=== PATIENT | female | born 1980 | race Caucasian/White ===

== ENCOUNTER 2022-03-04 19:41 | Emergency (ER) | payer SELFPAY ==
[2022-03-04 19:49] VITALS: RESP 20; TEMP 98.2; BMI 30.9
[2022-03-04] MEDS ORDERED: FAMOTIDINE 20 MG/50 ML IVPB 20 MG/50 ML MG IVPB ONE (20:13)
[2022-03-04] MEDS ORDERED: SODIUM CHLORIDE 0.9% 500 ML INFUS.BAG IV ONE (20:13)
[2022-03-04] MEDS ORDERED: ONDANSETRON 4 MG/2 ML VIAL IVPUSH ONE (20:13)
[2022-03-04] MEDS ORDERED: ONDANSETRON 4 MG/2 ML VIAL ONE (20:20)
[2022-03-04] MEDS ORDERED: FAMOTIDINE 10 MG/ML VIAL IVPB ONE (20:20)
[2022-03-04 20:31] LABS: BASO % 0.9 % (0-2.0); EOS % 1.9 % (0-4.5); HEMATOCRIT 47.5 % (32.4-45.2); LYMPH % 18.3 % (8-40); MCH 31.3 pg (25.7-33.7); MCHC 33.6 g/dl (32.0-36.0); MEAN CELL VOLUME 93.1 fl (80-96); MEAN PLT VOLUME 9.1 fl (7.5-11.1); MONO % 8.8 % (3.8-10.2); NEUT % 70.1 % (42.8-82.8); PLATELET COUNT 246 10^3/uL (134-434)
[2022-03-04 20:44] LABS: ALBUMIN 3.5 g/dl (3.4-5.0); BLOOD UREA NITROGEN 10.2 mg/dL (7-18); CALCIUM 9.1 mg/dL (8.5-10.1)
[2022-03-04 20:47] LABS: CREATININE 0.9 mg/dL (0.55-1.3)
[2022-03-04 20:49] LABS: BILIRUBIN,TOTAL 0.9 mg/dL (0.2-1); TOT PROT 6.8 g/dl (6.4-8.2)
[2022-03-04 23:07] VITALS: BP 127/80; PULSE 85
== END 2022-03-04 23:07 | disposition home or self-care (01) ==
LOC: JER 19:41
PROC: 3E033GC Introduction of Other Therapeutic Substance into Peripheral Vein, Percutaneous Approach (ICD-10-PCS; principal; 2022-03-04)
PROC: 3E033GC Introduction of Other Therapeutic Substance into Peripheral Vein, Percutaneous Approach (ICD-10-PCS; 2022-03-04)
DX: R11.2 Nausea with vomiting, unspecified (principal); R19.7 Diarrhea, unspecified
CPT/HCPCS: 0241U-QW; 36415; 71046-TC-FY; 80053; 83690; 84703; 85025; 99284-25

== ENCOUNTER 2023-03-22 20:11 | Inpatient (IN) | payer OTHER ==
[2023-03-22] MEDS ORDERED: ACETAMINOPHEN 325 MG TABLET (FP) PO ONE (20:29)
[2023-03-22] MEDS ORDERED: IBUPROFEN 600 MG TABLET (FP) PO ONE ×2 (20:29→20:37)
[2023-03-22] MEDS ORDERED: ACETAMINOPHEN 500 MG TABLET (FP) ONE (20:37)
[2023-03-22 21:03] LABS: EPI CELLS 23 /uL (0-25.1); HYALINE CASTS 4 /uL (0-3.1); URINE APPEARANCE CLOUDY; URINE BACTERIA 3368 /uL (0-1359); URINE BILIRUBIN NEGATIVE (NEGATIVE); URINE COLOR YELLOW; URINE GLUCOSE (UA) NEGATIVE (NEGATIVE); URINE KETONE TRACE (NEGATIVE); URINE LEUK ESTERASE 2+ (NEGATIVE); URINE NITRITE NEGATIVE (NEGATIVE); URINE PROTEIN TRACE (NEGATIVE); URINE RBC 25 /uL (0-23.9); URINE WBC 454 /uL (0-25.8)
[2023-03-22] MEDS ORDERED: ALBUTEROL SO4 2.5/IPRATROPIUM 0.5 INH SOL 3 ML VIAL.NEB. NEB ONE (21:23)
[2023-03-22] MEDS: ALBUTEROL SO4 2.5/IPRATROPIUM 0.5 INH SOL 3 ML VIAL.NEB. NEB SCH (21:26)
[2023-03-22] MEDS ORDERED: SODIUM CHLORIDE 0.9% 500 ML INFUS.BAG IV ONE (21:55)
[2023-03-22] MEDS ORDERED: CEFTRIAXONE 1,000 MG in DEXTROSE 5%-WATER - 50 ML IVPB ONE (22:02)
[2023-03-22] MEDS ORDERED: CEFTRIAXONE 1 GM/50 ML BAG ONE (22:10)
[2023-03-22 22:25] LABS: BASO % 0.5 % (0-2.0); EOS % 0.2 % (0-4.5); HEMATOCRIT 44.5 % (32.4-45.2); MCH 31.3 pg (25.7-33.7); MCHC 33.8 g/dl (32.0-36.0); MEAN CELL VOLUME 92.6 fl (80-96); MEAN PLT VOLUME 8.6 fl (7.5-11.1); MONO % 7.9 % (3.8-10.2); NEUT % 82.4 % (42.8-82.8); PLATELET COUNT 170 10^3/uL (134-434); RBC 4.81 M/mm3 (3.60-5.2); RDW 13.6 % (11.6-15.6); WHITE BLOOD COUNT 15.9 K/mm3 (4.0-10.0)
[2023-03-22 22:51] LABS: POTASSIUM 3.6 mmol/L (3.5-5.1)
[2023-03-22 22:54] LABS: CALCIUM 8.4 mg/dL (8.5-10.1)
[2023-03-22 22:55] LABS: ALBUMIN 3.7 g/dl (3.4-5.0)
[2023-03-22 22:58] LABS: CREATININE 0.7 mg/dL (0.55-1.3)
[2023-03-22 23:00] LABS: BILIRUBIN,TOTAL 0.6 mg/dL (0.2-1)
[2023-03-23] MEDS ORDERED: ALBUTEROL SO4 2.5/IPRATROPIUM 0.5 INH SOL 3 ML VIAL.NEB. NEB PRN (04:16)
[2023-03-23 05:07] VITALS: RESP 20; BMI 36.3
[2023-03-23 08:55] LABS: METHADONE, UR NEGATIVE (NEGATIVE); OPIATES, URI NEGATIVE (NEGATIVE); URINE BARBITURATES NEGATIVE (NEGATIVE); URINE BENZODIAZEPINES NEGATIVE (NEGATIVE)
[2023-03-23 08:56] LABS: URINE AMPHETAMINES NEGATIVE (NEGATIVE)
[2023-03-23 09:02] LABS: COCAINE, UR POSITIVE (NEGATIVE); PHENCYCLIDINE,URINE POSITIVE (NEGATIVE)
[2023-03-23] MEDS ORDERED: CEFTRIAXONE 1 GM in DEXTROSE 5%-WATER - 50 ML IVPB SCH (10:00)
[2023-03-23] MEDS: ENOXAPARIN NA (PORCINE) 40 MG/0.4 ML DISP.SYRIN SQ SCH (10:08)
[2023-03-23 10:16] LABS: BASO % 0.3 % (0-2.0); EOS % 0.2 % (0-4.5); HEMATOCRIT 41.2 % (32.4-45.2); LYMPH % 4.3 % (8-40); MCH 31.5 pg (25.7-33.7); MCHC 33.9 g/dl (32.0-36.0); MEAN CELL VOLUME 92.8 fl (80-96); MEAN PLT VOLUME 8.7 fl (7.5-11.1); MONO % 5.8 % (3.8-10.2); NEUT % 89.4 % (42.8-82.8); PLATELET COUNT 151 10^3/uL (134-434); RBC 4.44 M/mm3 (3.60-5.2); RDW 13.6 % (11.6-15.6); WHITE BLOOD COUNT 11.9 K/mm3 (4.0-10.0)
[2023-03-23] MEDS: BUDESONIDE/FORMETEROL FUMARATE 160/4.5 mcg INHALER IH SCH (10:24)
[2023-03-23 10:32] LABS: POTASSIUM 3.9 mmol/L (3.5-5.1)
[2023-03-23 10:34] LABS: CALCIUM 8.2 mg/dL (8.5-10.1); MAGNESIUM 1.8 mg/dL (1.8-2.4)
[2023-03-23 10:35] LABS: BLOOD UREA NITROGEN 12.1 mg/dL (7-18)
[2023-03-23 10:37] LABS: ALBUMIN 3.2 g/dl (3.4-5.0)
[2023-03-23 10:38] LABS: CREATININE 0.8 mg/dL (0.55-1.3); PHOSPHOROUS 1.6 mg/dL (2.5-4.9)
[2023-03-23 10:39] LABS: BILIRUBIN,TOTAL 0.4 mg/dL (0.2-1); TOT PROT 6.1 g/dl (6.4-8.2)
[2023-03-23] MEDS: ACETAMINOPHEN 325 MG TABLET (FP) PO PRN (13:42)
[2023-03-23] MEDS ORDERED: NAPH,MB-DB/K PH,MBDB POWDER PACKET PO ONE (14:30)
[2023-03-24] MEDS: ACETAMINOPHEN 325 MG TABLET (FP) PO PRN ×2 (05:25→11:51)
[2023-03-24] MEDS: BUDESONIDE/FORMETEROL FUMARATE 160/4.5 mcg INHALER IH SCH ×2 (05:33→11:24)
[2023-03-24] MEDS ORDERED: PIPERACILLIN/TAZOB 3.375 GM 3.375 GM in DEXTROSE 5%-WATER - 50 ML IVPB SCH ×2 (10:00→18:00)
[2023-03-24] MEDS: ENOXAPARIN NA (PORCINE) 40 MG/0.4 ML DISP.SYRIN SQ SCH (10:07)
[2023-03-24 11:02] LABS: BASO % 0.5 % (0-2.0); HEMATOCRIT 42.3 % (32.4-45.2); HEMOGLOBIN 14.1 GM/dL (10.7-15.3); LYMPH % 13.8 % (8-40); MCH 31.2 pg (25.7-33.7); MCHC 33.2 g/dl (32.0-36.0); MEAN CELL VOLUME 93.9 fl (80-96); MEAN PLT VOLUME 9.4 fl (7.5-11.1); MONO % 10.8 % (3.8-10.2); NEUT % 73.9 % (42.8-82.8); PLATELET COUNT 153 10^3/uL (134-434); RBC 4.51 M/mm3 (3.60-5.2); RDW 13.5 % (11.6-15.6); WHITE BLOOD COUNT 7.8 K/mm3 (4.0-10.0)
[2023-03-24 11:11] LABS: POTASSIUM 3.7 mmol/L (3.5-5.1)
[2023-03-24 11:19] LABS: CALCIUM 8.3 mg/dL (8.5-10.1)
[2023-03-24 11:20] LABS: BLOOD UREA NITROGEN 8.7 mg/dL (7-18); MAGNESIUM 2.2 mg/dL (1.8-2.4)
[2023-03-24 11:22] LABS: CREATININE 0.6 mg/dL (0.55-1.3); PHOSPHOROUS 1.9 mg/dL (2.5-4.9)
[2023-03-24 11:24] LABS: BILIRUBIN,TOTAL 0.5 mg/dL (0.2-1); TOT PROT 6.3 g/dl (6.4-8.2)
[2023-03-24 14:40] VITALS: BP 100/66; PULSE 78; TEMP 97.7
[2023-03-24] MEDS ORDERED: ALPRAZolam 0.25 MG TABLET PO STA (15:50)
[2023-03-24] MEDS ORDERED: NICOTINE 10 MG CARTRIDGE (INHALER) IH PRN (15:51)
[2023-03-24] MEDS ORDERED: NICOTINE POLACRILEX 2 MG GUM BUC PRN (15:52)
== END 2023-03-24 16:55 | disposition left against medical advice (07) | DRG 720 ==
LOC: JER 20:11 → JERBED 22:03 → J6S 03-23 04:51
PROVIDERS: ADMIT Internal Medicine; ATTEND Internal Medicine
DX: A41.9 Sepsis, unspecified organism (principal); J45.909 Unspecified asthma, uncomplicated; F12.90 Cannabis use, unspecified, uncomplicated; N39.0 Urinary tract infection, site not specified; H92.01 Otalgia, right ear; F17.210 Nicotine dependence, cigarettes, uncomplicated; J36 Peritonsillar abscess; Z53.29 Procedure and treatment not carried out because of patient's decision for other reasons
CPT/HCPCS: 0241U-QW; 36415; 70491-TC; 71046-TC-FY; 71260-TC; 80053; 80307; 81003; 82962; 83735; 84100; 84484; 84703; 85025; 87040; 87086; 87186; 93005; 93010; 99285-25; Q9967

== ENCOUNTER 2023-05-03 08:53 | Emergency (ER) | payer OTHER ==
[2023-05-03 09:33] VITALS: BP 134/78; PULSE 75; RESP 18; TEMP 98.3; BMI 32.1
[2023-05-03 11:07] LABS: INR 1.01 (0.83-1.09); PROTHROMBIN TIME (PATIENT) 11.7 SEC (9.7-13.0)
[2023-05-03 11:09] LABS: ACTIVATED PTT 30.1 SECONDS (25.2-36.5)
[2023-05-03 11:16] LABS: BASO % 0.4 % (0-2.0); EOS % 0.8 % (0-4.5); HEMATOCRIT 43.3 % (32.4-45.2); HEMOGLOBIN 15.4 GM/dL (10.7-15.3); LYMPH % 18.1 % (8-40); MCHC 35.5 g/dl (32.0-36.0); MEAN CELL VOLUME 92.8 fl (80-96); MEAN PLT VOLUME 8.3 fl (7.5-11.1); MONO % 8.3 % (3.8-10.2); NEUT % 72.4 % (42.8-82.8); PLATELET COUNT 192 10^3/uL (134-434); RBC 4.66 M/mm3 (3.60-5.2); WHITE BLOOD COUNT 8.1 K/mm3 (4.0-10.0)
[2023-05-03 11:24] LABS: POTASSIUM 4.1 mmol/L (3.5-5.1)
[2023-05-03 11:26] LABS: CALCIUM 8.8 mg/dL (8.5-10.1)
[2023-05-03 11:27] LABS: ALBUMIN 3.8 g/dl (3.4-5.0); BLOOD UREA NITROGEN 14.2 mg/dL (7-18)
[2023-05-03 11:29] LABS: CREATININE 0.7 mg/dL (0.55-1.3)
[2023-05-03 11:31] LABS: BILIRUBIN,TOTAL 0.4 mg/dL (0.2-1); TOT PROT 7.3 g/dl (6.4-8.2)
[2023-05-03 11:58] LABS: EPI CELLS 36 /uL (0-25.1); HYALINE CASTS 0 /uL (0-3.1); PH,URINE 7.5 (5.0-8.0); URINE APPEARANCE CLEAR; URINE BACTERIA 381 /uL (0-1359); URINE BILIRUBIN NEGATIVE (NEGATIVE); URINE COLOR YELLOW; URINE GLUCOSE (UA) NEGATIVE (NEGATIVE); URINE KETONE NEGATIVE (NEGATIVE); URINE LEUK ESTERASE 3+ (NEGATIVE); URINE NITRITE NEGATIVE (NEGATIVE); URINE PROTEIN NEGATIVE (NEGATIVE); URINE RBC 7 /uL (0-23.9); URINE UROBILINOGEN 0.2 mg/dL (0.2-1.0); URINE WBC 31 /uL (0-25.8)
[2023-05-03] MEDS ORDERED: NITROFURANTOIN MACROCRYSTAL 50 MG CAPSULE (FP) PO ONE (13:30)
[2023-05-03] MEDS ORDERED: NITROFURANTOIN MACROCRYSTAL 50 MG CAPSULE (FP) ONE (13:48)
== END 2023-05-03 14:00 | disposition home or self-care (01) ==
LOC: JER 08:53
DX: R13.10 Dysphagia, unspecified (principal); N39.0 Urinary tract infection, site not specified; J02.9 Acute pharyngitis, unspecified; H92.02 Otalgia, left ear; R43.8 Other disturbances of smell and taste; B34.9 Viral infection, unspecified; Z20.822 Contact with and (suspected) exposure to COVID-19
CPT/HCPCS: 0241U-QW; 36415; 70491-TC; 80053; 81003; 84703; 85025; 85610; 85730; 86850; 86900; 86901; 87086; 87651; 99285-25; Q9967

== ENCOUNTER 2023-05-19 12:36 | Emergency (ER) | payer OTHER ==
[2023-05-19 12:49] VITALS: BP 123/85; PULSE 69; RESP 20; TEMP 97.1; BMI 29.0
== END 2023-05-19 13:46 | disposition left against medical advice (07) ==
LOC: JERFT 12:36
DX: H02.819 Retained foreign body in unspecified eye, unspecified eyelid (principal)
CPT/HCPCS: 99281-25

== ENCOUNTER 2023-07-02 08:08 | Emergency (ER) | payer OTHER ==
[2023-07-02 08:22] VITALS: BP 120/74; PULSE 89; RESP 17; TEMP 99.6; BMI 28.2
[2023-07-02] MEDS ORDERED: ACETAMINOPHEN 1000 MG/100 ML BAG IVPB ONE (09:18)
[2023-07-02 09:53] LABS: BASO % 0.3 % (0-2.0); HEMATOCRIT 44.6 % (32.4-45.2); LYMPH % 12.3 % (8-40); MCH 31.7 pg (25.7-33.7); MCHC 33.7 g/dl (32.0-36.0); MEAN CELL VOLUME 93.9 fl (80-96); MEAN PLT VOLUME 8.3 fl (7.5-11.1); MONO % 9.5 % (3.8-10.2); NEUT % 76.9 % (42.8-82.8); PLATELET COUNT 208 10^3/uL (134-434); RBC 4.75 M/mm3 (3.60-5.2); RDW 13.4 % (11.6-15.6); WHITE BLOOD COUNT 11.1 K/mm3 (4.0-10.0)
[2023-07-02 10:09] LABS: POTASSIUM 4.5 mmol/L (3.5-5.1)
[2023-07-02 10:11] LABS: ALBUMIN 3.8 g/dl (3.4-5.0); CALCIUM 8.9 mg/dL (8.5-10.1); MAGNESIUM 2.2 mg/dL (1.8-2.4)
[2023-07-02 10:12] LABS: BLOOD UREA NITROGEN 12.9 mg/dL (7-18)
[2023-07-02 10:15] LABS: CREATININE 0.8 mg/dL (0.55-1.3)
[2023-07-02 10:16] LABS: BILIRUBIN,TOTAL 1.2 mg/dL (0.2-1); TOT PROT 7.3 g/dl (6.4-8.2)
[2023-07-02] MEDS ORDERED: KETOROLAC TROMETHAMINE 15 MG/ML VIAL IM ONE ×2 (10:23→16:14)
[2023-07-02] MEDS ORDERED: SODIUM CHLORIDE 0.9% 500 ML INFUS.BAG IV ONE (10:23)
[2023-07-02] MEDS ORDERED: KETOROLAC TROMETHAMINE 15 MG/ML VIAL ONE ×2 (10:48→16:16)
[2023-07-02] MEDS ORDERED: BENZOCAINE 20% UNIT DOSE SPRAY MM ONE (14:51)
[2023-07-02] MEDS ORDERED: DEXAMETHASONE SOD PHOSPHATE 10 MG/1 ML VIAL IVPUSH ONE (16:22)
[2023-07-02] MEDS ORDERED: AMOX TR/POT CLAV 875MG/125MG TABLETS (FP) ONE (16:43)
[2023-07-02] MEDS ORDERED: DEXAMETHASONE 4 MG TABLET (FP) ONE (16:43)
[2023-07-02] MEDS ORDERED: DEXAMETHASONE 4 MG TABLET (FP) PO ONE (16:51)
[2023-07-02] MEDS ORDERED: AMOX TR/POT CLAV 875MG/125MG TABLETS (FP) PO ONE (16:51)
== END 2023-07-02 16:54 | disposition home or self-care (01) ==
LOC: JER 08:08
PROC: 0C9PXZZ Drainage of Tonsils, External Approach (ICD-10-PCS; principal; 2023-07-02)
PROC: 3E033NZ Introduction of Analgesics, Hypnotics, Sedatives into Peripheral Vein, Percutaneous Approach (ICD-10-PCS; 2023-07-02)
PROC: 3E0233Z Introduction of Anti-inflammatory into Muscle, Percutaneous Approach (ICD-10-PCS; 2023-07-02)
PROC: 3E0233Z Introduction of Anti-inflammatory into Muscle, Percutaneous Approach (ICD-10-PCS; 2023-07-02)
DX: J36 Peritonsillar abscess (principal); R51.9 Headache, unspecified; R50.9 Fever, unspecified; R11.2 Nausea with vomiting, unspecified; R19.7 Diarrhea, unspecified; R13.10 Dysphagia, unspecified; R63.8 Other symptoms and signs concerning food and fluid intake
CPT/HCPCS: 36415; 70491-TC; 80053; 83735; 84703; 85025; 99285-25; Q9967